=== PATIENT | female | born 1975 | race Caucasian/White ===

== ENCOUNTER → 2024-01-12 | Outpatient (CLI) | payer BC ==
[2024-01-12 20:15] LABS: FERRITIN 46.8 NG/ML (7.3-270.7); FOLATE 4.74 NG/ML (>5.4)
[2024-01-12 20:20] LABS: PERCENT SATURATION 16.4 % (13.2-45.0)
== END ==
LOC: M PLALAB 15:17
PROVIDERS: ATTEND Psychiatry & Neurology Neurology
DX: E53.8 Deficiency of other specified B group vitamins (principal); R20.0 Anesthesia of skin